=== PATIENT | female | born 1965 | race Caucasian/White ===

== ENCOUNTER 2017-02-09 22:14 | Emergency (ER) | payer MEDICARE, BC ==
[2017-02-09 22:29] VITALS: BP 130/70
[2017-02-09] MEDS ORDERED: Sodium Chloride 0.9% 1,000 ML IV ONE (22:45)
[2017-02-09] MEDS ORDERED: Ondansetron 4 MG/2 ML SDV IVPUSH ONE ×2 (22:46→22:48)
[2017-02-09] MEDS ORDERED: Dicyclomine 20 MG/2 ML SDV IM ONE (22:46)
--- NOTE | 2017-02-09 23:00 | EDM.PDOC ---
ED HPI GENERAL MEDICAL PROBLEM - General Chief Complaint: Abdominal Pain Stated Complaint: VOMITING DIARRHEA ABDOMINAL PAIN Time Seen by Provider: 02/09/17 22:26 Source of Information: Reports: Patient, RN Notes Reviewed History Limitations: Reports: No Limitations - History of Present Illness INITIAL COMMENTS - FREE TEXT/NARRATIVE: The patient states that she has a history of irritable bowel syndrome, and is undergoing a 3 day GI prep for a colonoscopy scheduled this 02/11/2017 , per Dr. Grimes. She states that when she was given a one-day prep in the past , it was inadequate, therefore she was given a 3 day prep this time. She started GoLYTELY yesterday, but has been having nausea, vomiting, and diarrhea for the past 2 days. She has been having upper abdominal cramps. She states that she feels alternatingly hot and cold. She is aware that her symptoms are due to the GI prep, but states that she can't take it anymore. She states that her contacted Dr. Grimes, who switched the GoLYTELY to magnesium citrate, however, she has not taken any of that yet. The patient's PCP is Dr. Monzon. Abdomen Pain Score (Numeric/FACES): 10 - Related Data Allergies Allergy/AdvReac Type Severity Reaction Status Date / Time codeine Allergy Itching Verified 05/21/16 02:29 milnacipran [From Savella] Allergy Other Verified 05/21/16 02:29 pregabalin [From Lyrica] Allergy Other Verified 05/21/16 02:29 Home Meds: Home Meds Morphine 180 mg PO TID 05/19/16 [History] Pravastatin [Pravachol] 40 mg PO DAILY 05/19/16 [History] Past Medical History Cardiovascular History: Reports: High Cholesterol Gastrointestinal History: Reports: Irritable Bowel Syndrome Musculoskeletal History: Reports: Neck Pain, Chronic Neurological History: Reports: Headaches, Chronic - Past Surgical History HEENT Surgical History: Reports: Adenoidectomy, Tonsillectomy GI Surgical History: Reports: Appendectomy, Cholecystectomy, Other (See Below) ( Exploratory laparotomy) Female Surgical History: Reports: Other (See Below) (Bilateral lumpectomies) Musculoskeletal Surgical History: Reports: Shoulder Surgery (Left rotator cuff repair, open) Social & Family History - Family History Family Medical History: Noncontributory - Tobacco Use Smoking Status *Q: Current Every Day Smoker Years of Tobacco use: 30 Packs/Tins Daily: 0.5 - Caffeine Use Caffeine Use: Reports: Coffee, Tea - Alcohol Use Alcohol Use History: No - Recreational Drug Use Recreational Drug Use: No - Living Situation & Occupation Living situation: Reports: , with Spouse Occupation: Unemployed ED ROS GENERAL - Review of Systems Review Of Systems: See Below Constitutional: Reports: No Symptoms HEENT: Reports: No Symptoms Respiratory: Reports: No Symptoms Cardiovascular: Reports: No Symptoms Endocrine: Reports: No Symptoms GI/Abdominal: Reports: No Symptoms : Reports: No Symptoms Musculoskeletal: Reports: Neck Pain (Chronic) Skin: Reports: No Symptoms Neurological: Reports: Headache (Chronic) Psychiatric: Reports: No Symptoms Hematologic/Lymphatic: Reports: No Symptoms Immunologic: Reports: No Symptoms ED EXAM, GI/ABD - Physical Exam Exam: See Below Exam Limited By: No Limitations General Appearance: Alert, WD/WN, No Apparent Distress, Other (Kept her eyes closed through the entire history and physical) Eyes: Bilateral: Normal Appearance, EOMI Ears: Normal External Exam, Hearing Grossly Normal, Normal TMs Nose: Normal Inspection, No Blood Throat/Mouth: Normal Inspection, Normal Lips, Normal Voice, No Airway Compromise Head: Atraumatic, Normocephalic Neck: Normal Inspection, Full Range of Motion Respiratory/Chest: No Respiratory Distress, Lungs Clear, Normal Breath Sounds, No Accessory Muscle Use Cardiovascular: Normal Peripheral Pulses, Regular Rate, Rhythm, No Gallop, No JVD, No Murmur, No Rub GI/Abdominal: Normal Bowel Sounds, Soft, No Organomegaly, No Distention, No Abnormal Bruit, No Mass, Tenderness (Generalized, nonfocal) (Female) Exam: Deferred Rectal (Female) Exam: Deferred Back Exam: Normal Inspection, Full Range of Motion Extremities: Normal Inspection, Normal Range of Motion, No Pedal Edema, Normal Capillary Refill Neurological: Alert, Oriented, Normal Cognition, No Motor/Sensory Deficits Psychiatric: Flat Affect Skin Exam: Warm, Dry, Intact, Normal Color, No Rash Lymphatic: No Adenopathy Course - Vital Signs Last Recorded V/S: Last Vital Signs Temp 36.5 C 02/09/17 22:25 Pulse 52 L 02/09/17 22:25 Resp 16 02/09/17 22:25 BP 130/70 02/09/17 22:25 Pulse Ox 100 02/09/17 22:25 - Orders/Labs/Meds Labs: Laboratory Tests 02/09/17 02/09/17 02/10/17 Range/Units 23:05 23:05 00:00 WBC 9.49 (3.98-10.04) K/mm3 RBC 4.73 (3.98-5.22) M/mm3 Hgb 14.5 (11.2-15.7) gm/L Hct 41.4 (34.1-44.9) % MCV 87.5 (79.4-94.8) fl MCH 30.7 (25.6-32.2) pg MCHC 35.0 (32.2-35.5) g/dl RDW Std Deviation 39.4 (36.4-46.3) fL Plt Count 173 L (182-369) K/mm3 MPV 11.1 (9.4-12.3) fl Neutrophils % (Manual) 94 H (40-60) % Band Neutrophils % 0 (0-10) % Lymphocytes % (Manual) 6 L (20-40) % Atypical Lymphs % 0 % Monocytes % (Manual) 0 L (2-10) % Eosinophils % (Manual) 0 L (0.7-5.8) % Basophils % (Manual) 0 L (0.1-1.2) Platelet Estimate Adequate RBC Morph Comment Normal Sodium 144 (136-145) mEq/L Potassium 3.6 (3.5-5.1) mEq/L Chloride 106 (98-107) mEq/L Carbon Dioxide 23 (21-32) mEq/L Anion Gap 18.6 H (5-15) BUN 11 (7-18) mg/dL Creatinine 0.7 (0.55-1.02) mg/dL Est Cr Clr Drug Dosing 86.01 mL/min Estimated GFR (MDRD) > 60 (>60) mL/min BUN/Creatinine Ratio 15.7 (14-18) Glucose 156 H (74-106) mg/dL Calcium 9.4 (8.5-10.1) mg/dL Total Bilirubin 0.3 (0.2-1.0) mg/dL AST 16 (15-37) U/L ALT 47 (14-59) U/L Alkaline Phosphatase 75 (46-116) U/L Total Protein 7.9 (6.4-8.2) g/dl Albumin 3.9 (3.4-5.0) g/dl Globulin 4.0 gm/dL Albumin/Globulin Ratio 1.0 (1-2) Lipase 96 (73-393) U/L Urine Color Yellow (Yellow) Urine Appearance Clear (Clear) Urine pH 6.0 (5.0-8.0) Ur Specific [place] > or = 1.030 (1.005-1.030) Urine Protein 1+ H (Negative) Urine Glucose (UA) Negative (Negative) Urine Ketones 2+ H (Negative) Urine Occult Blood 1+ H (Negative) Urine Nitrite Negative (Negative) Urine Bilirubin 1+ H (Negative) Urine Urobilinogen 0.2 (0.2-1.0) Ur Leukocyte Esterase Negative (Negative) Urine RBC 0-5 (0-5) /hpf Urine WBC 0-5 (0-5) /hpf Ur Epithelial Cells 0-5 (0-5) /hpf Urine Bacteria Few (FEW) /hpf Urine Mucus Moderate H (FEW) /hpf Meds: Medications Discontinued Medications Generic Name Dose Route Start Last Admin Trade Name Freq PRN Reason Stop Dose Admin Dicyclomine HCl 20 mg 02/09/17 22:46 02/09/17 23:12 Bentyl IM 02/09/17 22:47 20 mg ONETIME ONE Administration Sodium Chloride 1,000 mls @ 999 mls/hr 02/09/17 22:45 02/09/17 23:12 Normal Saline IV 02/09/17 23:45 999 mls/hr ONETIME ONE Administration Ondansetron HCl 4 mg 02/09/17 22:46 02/09/17 23:10 Zofran IVPUSH 02/09/17 22:47 4 mg ONETIME ONE Administration Ondansetron HCl 4 mg 02/09/17 22:48 02/09/17 23:14 Zofran IVPUSH 02/09/17 22:49 4 mg ONETIME ONE Administration - Re-Assessments/Exams Free Text/Narrative Re-Assessment/Exam: 02/10/17 00:52 Test results discussed with the patient. Today's workup finds no electrolyte abnormalities, however, her blood glucose is elevated at 156, likely representing prediabetes. This was discussed with the patient and her . The patient tells me that she has been told she had hyperglycemia in the past, but that nothing was done about it. They tell me that they already have Zofran ODT at home, and do not need another prescription. I treated the patient with a single dose of IM Bentyl in the ED, but because that can cause colonic dysmotility which could affect the colonoscopy, I am not going to prescribe any more. Departure - Departure Time of Disposition: 00:53 Disposition: Home, Self-Care 01 Condition: Fair Clinical Impression: Nausea, vomiting and diarrhea, Abdominal cramping, Hyperglycemia - Discharge Information Referrals: Mesfin Monzon MD [Primary Care Provider] - Asaf Grimes MD [Physician] - Forms: ED Department Discharge Additional Instructions: You were seen in the emergency room for nausea, vomiting, diarrhea, and abdominal cramps associated with your colonoscopy prep. Workup in the ER included blood work and a urinalysis. Your workup was unremarkable, with the exception of your blood sugar being elevated at 156. This is abnormally high and MOST LIKELY represents prediabetes. You are not dehydrated, and have not developed any electrolyte abnormalities as a result of your vomiting and diarrhea. We recommend that you follow-up with your PCP, Dr. Monzon, for further diabetes evaluation. We recommend that you follow-up with Dr. Grimes regarding the difficulties that you're having with your colonoscopy prep. Take your previously prescribed Zofran oral dissolve tablet as needed. Stay adequately hydrated. If any other problems, please do not hesitate to return to the ER.
== END 2017-02-10 01:05 | disposition home or self-care (01) ==
LOC: JD.ED 22:14
DX: R10.10 Upper abdominal pain, unspecified (principal); R73.9 Hyperglycemia, unspecified; R11.2 Nausea with vomiting, unspecified; R19.7 Diarrhea, unspecified; E78.00 Pure hypercholesterolemia, unspecified; F17.210 Nicotine dependence, cigarettes, uncomplicated; Z88.8 Allergy status to other drugs, medicaments and biological substances; Z88.5 Allergy status to narcotic agent; Z90.49 Acquired absence of other specified parts of digestive tract; Z98.890 Other specified postprocedural states
CPT/HCPCS: 36415; 80053; 81001; 83690; 85025; 96361; 96372; 96374; 99284; J0500; J2405; J7040

== ENCOUNTER 2017-02-11 07:53 | Day surgery (SDC) | payer MEDICARE, BC ==
[~2017-02-11 07:53] MED LIST: Lactated Ringers 1,000 ML IV SCH; Lidocaine 1%/Sod Bicarbonate in NS 8.4% 1 ML Syringe PRN; Sodium Chloride 0.9% 10 ML Syringe FLUSH PRN
--- NOTE | 2017-02-11 09:09 | PCM.PREANE ---
Preanesthetic Assessment - Anesthesia/Transfusion/Family Hx Anesthesia History: Prior Anesthesia Reaction Type of Anesthesia Reaction: Excessive Nausea/Vomiting Family History of Anesthesia Reaction: No Transfusion History: No Prior Transfusion(s) - Review of Systems General: No Symptoms Pulmonary: No Symptoms Cardiovascular: No Symptoms Gastrointestinal: Abdominal pain Neurological: Numbness (feet, hands) Other: Reports: Easy Bleeding - Physical Assessment NPO Status Date: 02/10/17 NPO Status Time: 23:00 Pulse: 78 O2 Sat by Pulse Oximetry: 97 Respiratory Rate: 16 Blood Pressure: 123/67 Temperature: 37.0 C Height: 1.68 m Weight: 65.771 kg ASA Class: 2 Mental Status: Alert & Oriented x3 Airway Class: Mallampati = 1 Dentition: Reports: Normal Dentition Thyro-Mental Finger Breadths: 3 Mouth Opening Finger Breadths: 3 ROM/Head Extension: Limited/Partial Lungs: Clear to auscultation, Normal respiratory effort Cardiovascular: Regular Rate, Regular Rhythm - Allergies Allergies/Adverse Reactions: Allergies Allergy/AdvReac Type Severity Reaction Status Date / Time codeine Allergy Itching Verified 02/11/17 08:35 latex Allergy Itching Verified 02/11/17 08:35 milnacipran [From Savella] Allergy Other Verified 02/11/17 08:35 pregabalin [From Lyrica] Allergy Other Verified 02/11/17 08:35 - Anesthesia Plan Pre-Op Medication Ordered: None - Acknowledgements Anesthesia Type Planned: MAC Pt an Appropriate Candidate for the Planned Anesthesia: Yes Alternatives and Risks of Anesthesia Discussed w Pt/Guardian: Yes Pt/Guardian Understands and Agrees with Anesthesia Plan: Yes PreAnesthesia Questionnaire HEENT History: Reports: Allergic Rhinitis Cardiovascular History: Reports: High Cholesterol, Other (See Below) Other Cardiovascular History: bradycardia Respiratory History: Reports: None Gastrointestinal History: Reports: Cholelithiasis, Irritable Bowel Syndrome, Other (See Below) Other Gastrointestinal History: RLQ pain [employer] HAND History: Reports: Other (See Below) Other OB/BYN History: breast lumpectomy Musculoskeletal History: Reports: Back Pain, Chronic, Neck Pain, Chronic Neurological History: Reports: Headaches, Chronic Psychiatric History: Reports: None Endocrine/Metabolic History: Reports: None Hematologic History: Reports: None Immunologic History: Reports: None Dermatologic History: Reports: None - Past Surgical History HEENT Surgical History: Reports: Adenoidectomy, Tonsillectomy GI Surgical History: Reports: Appendectomy, Cholecystectomy, Colonoscopy, Other (See Below) Other GI Surgeries/Procedures: exploratory laparotomy Female Surgical History: Reports: Tubal Ligation Musculoskeletal Surgical History: Reports: Shoulder Surgery Oncologic Surgical History: Reports: Lumpectomy - SUBSTANCE USE Smoking Status *Q: Current Every Day Smoker Tobacco Use Within Last Twelve Months: Cigarettes Second Hand Smoke Exposure: Yes Days Per Week of Alcohol Use: 0 Number of Drinks Per Day: 0 Total Drinks Per Week: 0 Recreational Drug Use History: No - HOME MEDS Home Medications: Home Meds Morphine 180 mg PO TID 05/19/16 [History] Pravastatin [Pravachol] 40 mg PO DAILY 05/19/16 [History] Aspirin 81 mg PO DAILY 02/10/17 [History] Ondansetron [Ondansetron ODT] 4 mg PO Q8H PRN 02/10/17 [History] Albuterol Sulfate [Proair Hfa] 8.5 gm IH ASDIRECTED PRN 02/11/17 [History] Diazepam [Valium] 5 mg PO Q6HR PRN 02/11/17 [History] - CURRENT (IN HOUSE) MEDS Current Meds: Current Medications Lactated Ringer's (Ringers, Lactated) 1,000 mls @ 125 mls/hr IV ASDIRECTED KISHAN Stop: 02/11/17 23:00 Last Admin: 02/11/17 08:15 Dose: 125 mls/hr Lidocaine/Sodium Bicarbonate (Buffered Lidocaine 1% In Ns 8.4%) 0.25 ml .XX ONETIME PRN PRN Reason: Prior to IV Start Stop: 02/11/17 18:00 Last Admin: 02/11/17 08:14 Dose: 0.25 ml Sodium Chloride (Saline Flush) 10 ml FLUSH ASDIRECTED PRN PRN Reason: Keep Vein Open Stop: 02/11/17 18:00
[2017-02-11] MEDS ORDERED: Scopolamine 1.5 MG Transdermal Patch TOP ONE (09:15)
[2017-02-11] MEDS ORDERED: Midazolam 1 MG/ML 2 ML SDV ONE (09:23)
[2017-02-11] MEDS ORDERED: Propofol 200 MG/20 ML SDV ONE ×2 (09:23→10:04)
[2017-02-11] MEDS ORDERED: Lidocaine 1% 4 ML ONE (09:23)
[2017-02-11] MEDS ORDERED: fentaNYL 100 MCG/2 ML SDV ONE (09:23)
[2017-02-11] MEDS ORDERED: Lactated Ringers 1,000 ML ONE (10:12)
--- NOTE | 2017-02-11 10:20 | PCM.OPNOTE ---
- General Post-Op/Procedure Note Date of Surgery/Procedure: 02/11/17 Operative Procedure(s): 1. EGD with antral biopsy. 2. Colonoscopy with descending colonic and rectal polypectomies Findings: 1. antritis with speckled hemorrhage, no ulcers 2. duodenal-gastric bile reflux 3. rectal, and colon polyp; <5mm Pre Op Diagnosis: 1. Melena. 2. Weight loss unintentional Post-Op Diagnosis: 1. antritis with speckled hemorrhage, no ulcers. 2. duodenal -gastric bile reflux. 3. rectal, and colon polyp; <5mm Anesthesia Technique: MAC, Moderate sedation Primary Surgeon: Asaf Grimes Pathology: Antral biopsies Colon rectal polypectomy EBL in mLs: 0 Complications: None Condition: Good Free Text/Narrative:: After adequate IV sedation and analgesia was obtained with monitoring the patient was placed on her left side. Through the bite block a lubricated upper endoscope was inserted into the esophagus then advanced under direct vision to the stomach. Additional air was given here. There were speckled fibrinous type blood clots within the antrum. These were fine. There was no gross hemorrhage. There was a significant amount of bile within the antrum. The scope was advanced through the pylorus into the second part of the duodenum. The second and first portions were endoscopically normal with no mass lesions or inflammatory changes. The antrum was mildly inflamed and I took 2 biopsies for histologic evaluation. The body of the stomach had normal rugal folds. In the retroflexed view there is no hiatal hernia and the fundus and cardiac regions were normal. There are no gastric or duodenal ulcers. The scope was withdrawn to the distal esophagus which was normal. The body esophagus was unremarkable as well. Photographs were taken for the patient and for the record. Air was removed as a finished procedure which she tolerated well. Perianal inspection and digital rectal examination were performed. A lubricated colonoscope was inserted into the rectum and advanced to the cecum without difficulty. The bowel preparation was excellent. The cecum right colon transverse and descending colons were only remarkable for diminutive polyp about 5 mm in size within the proximal descending colon. This polyp was removed with cold forceps. The specimen was retrieved and the polypectomy site was hemostatic. The sigmoid was unremarkable. Within the rectum there was a similar diminutive polyp was also removed with cold forceps. In the retroflexed rectal view there were no hemorrhoids or mass lesions seen. Photographs were taken for the patient and for the record. There were no complications.
[2017-02-11 10:56] VITALS: BP 109/60
--- NOTE | 2017-02-11 11:47 | PCM48HPAN ---
Post Anesthesia Note - EVALUATION WITHIN 48HRS OF ANESTHETIC Vital Signs in Normal Range: Yes Patient Participated in Evaluation: Yes Respiratory Function Stable: Yes Airway Patent: Yes Cardiovascular Function Stable: Yes Hydration Status Stable: Yes Pain Control Satisfactory: Yes Nausea and Vomiting Control Satisfactory: Yes Mental Status Recovered: Yes - COMMENTS/OBSERVATIONS Free Text/Narrative:: NO ANESTHETIC COMPLICATIONS NOTED
== END 2017-02-11 10:48 | disposition home or self-care (01) ==
LOC: JD.SDS 07:53
PROVIDERS: ATTEND Surgery
DX: D12.4 Benign neoplasm of descending colon (principal); K62.1 Rectal polyp; K29.51 Unspecified chronic gastritis with bleeding; K31.9 Disease of stomach and duodenum, unspecified; E78.00 Pure hypercholesterolemia, unspecified; F17.210 Nicotine dependence, cigarettes, uncomplicated; Z98.890 Other specified postprocedural states; Z90.49 Acquired absence of other specified parts of digestive tract; Z98.51 Tubal ligation status; Z79.82 Long term (current) use of aspirin; Z79.899 Other long term (current) drug therapy; Z88.5 Allergy status to narcotic agent; Z91.040 Latex allergy status; Z88.8 Allergy status to other drugs, medicaments and biological substances
CPT/HCPCS: 43239; 45380; A9270; J2250; J3010; J7120; 00810; 88305; 88342; J2704

== ENCOUNTER 2019-05-23 06:34 | Inpatient (IN) | payer MEDICARE, BC ==
[~2019-05-23 06:34] MED LIST changes: +Acetaminophen 325 MG Tab PO SCH; +Lidocaine 1%/Sod Bicarbonate in NS 8.4% 1 ML Syringe IDERM PRN; -Lidocaine 1%/Sod Bicarbonate in NS 8.4% 1 ML Syringe PRN; +oxyCODONE ER 10 MG TAB.ER PO SCH
[2019-05-23] MEDS ORDERED: Naloxone 0.4 MG/ML SDV IVPUSH PRN (06:52)
[2019-05-23] MEDS ORDERED: Morphine 2 MG/ML Syringe IVPUSH PRN (06:52)
[2019-05-23] MEDS ORDERED: Bisacodyl 5 MG Tab PO PRN (06:52)
[2019-05-23] MEDS ORDERED: Ondansetron 4 MG/2 ML SDV IVPUSH PRN ×2 (06:52→09:54)
[2019-05-23] MEDS ORDERED: Magnesium Hydroxide 400 MG/5 ML Susp 30 ML Cup PO PRN (06:52)
[2019-05-23] MEDS ORDERED: Sennosides 8.6 MG Tab PO PRN (06:52)
[2019-05-23] MEDS ORDERED: ceFAZolin 1 GM Vial ONE ×2 (07:07→07:15)
[2019-05-23] MEDS ORDERED: Vancomycin 1 GM SDV ONE (07:07)
[2019-05-23] MEDS ORDERED: Iodine/Sodium Iodide 2% Tincture 30 ML Bottle ONE (07:07)
[2019-05-23] MEDS ORDERED: Bupivacaine 0.25% 10 ML SDV ONE (07:07)
[2019-05-23] MEDS ORDERED: EPINEPHrine 1 MG/1 ML Amp ONE (07:11)
[2019-05-23] MEDS ORDERED: Ropivacaine 0.5% 5 MG/ML 30 ML SDV ONE (07:11)
[2019-05-23] MEDS ORDERED: Rocuronium 50 MG/5 ML Vial ONE (07:15)
[2019-05-23] MEDS ORDERED: Lactated Ringers 1,000 ML ONE (07:15)
[2019-05-23] MEDS ORDERED: Propofol 200 MG/20 ML SDV ONE (07:15)
[2019-05-23] MEDS ORDERED: Ondansetron 4 MG/2 ML SDV ONE (07:15)
[2019-05-23] MEDS ORDERED: Lidocaine 1% 4 ML ONE ×2 (07:15→07:56)
[2019-05-23] MEDS ORDERED: Dexamethasone 4 MG/ML 5 ML MDV ONE (07:16)
[2019-05-23] MEDS ORDERED: Ketorolac 30 MG/ML SDV ONE (07:16)
[2019-05-23] MEDS ORDERED: fentaNYL 250 MCG/5 ML SDV ONE (07:16)
[2019-05-23] MEDS ORDERED: Midazolam 1 MG/ML 2 ML SDV ONE (07:16)
[2019-05-23] MEDS ORDERED: Scopolamine 1.5 MG Transdermal Patch TOP ONE (07:41)
--- NOTE | 2019-05-23 09:49 | PCM.PREANE ---
Preanesthetic Assessment - Anesthesia/Transfusion/Family Hx Anesthesia History: Prior Anesthesia Reaction Type of Anesthesia Reaction: Excessive Nausea/Vomiting Family History of Anesthesia Reaction: No Transfusion History: No Prior Transfusion(s) - Review of Systems General: No Symptoms Pulmonary: No Symptoms, Other (Quit smoking one year ago. Prior was 0.5 ppd for 40 years. ) Cardiovascular: No Symptoms, Other (Negative stress test one year ago. ) Gastrointestinal: No Symptoms Neurological: Headache, Numbness, Pre-Existing Deficit, Tingling Other: Reports: Easy Bleeding, Easy Bruising, Neck Pain (Neck injury 23 years ago. Numbness/Pain/Tingling to bilateral arms. Chronic pain syndrome. ), Anxiety - Physical Assessment NPO Status Date: 05/22/19 NPO Status Time: 18:00 Vital Signs: Last Vital Signs Temp 36.4 C 05/23/19 06:45 Pulse 77 05/23/19 08:33 Resp 15 05/23/19 08:33 BP 132/70 05/23/19 08:33 Pulse Ox 100 05/23/19 08:33 Height: 1.68 m Weight: 76.657 kg ASA Class: 2 Mental Status: Alert & Oriented x3 Airway Class: Mallampati = 1 Dentition: Reports: Dentures (Upper) Thyro-Mental Finger Breadths: 3 Mouth Opening Finger Breadths: 3 ROM/Head Extension: Limited/Partial (Limited neck extension.) Lungs: Clear to Auscultation, Normal Respiratory Effort Cardiovascular: Regular Rate, Regular Rhythm - Lab Values: Laboratory Last Values PT 10.4 SECONDS (9.7-12.0) 05/23/19 07:23 INR 0.95 05/23/19 07:23 APTT 24 SECONDS (22-31) 05/23/19 07:23 MRSA (PCR) Negative 05/11/19 14:03 - Imaging/EKG Impressions: Sinus Rajesh at 55bpm - Allergies Allergies/Adverse Reactions: Allergies Allergy/AdvReac Type Severity Reaction Status Date / Time adhesive Allergy Rash Verified 05/19/19 14:28 codeine Allergy Nausea and Verified 05/19/19 14:28 Vomiting gabapentin Allergy Anaphylactic Verified 05/19/19 14:28 Shock latex Allergy Itching Verified 05/19/19 14:28 milnacipran [From Savella] Allergy Anaphylactic Verified 05/19/19 14:28 Shock pregabalin [From Lyrica] Allergy Anaphylactic Verified 05/19/19 14:28 Shock - Anesthesia Plan Pre-Op Medication Ordered: Anxiolytic, Other (Scopalamine patch) - Acknowledgements Anesthesia Type Planned: General Anesthesia, Regional Block (Interscalene Nerve Block ) Pt an Appropriate Candidate for the Planned Anesthesia: Yes Alternatives and Risks of Anesthesia Discussed w Pt/Guardian: Yes Pt/Guardian Understands and Agrees with Anesthesia Plan: Yes PreAnesthesia Questionnaire HEENT History: Reports: Impaired Vision, Other (See Below) Other HEENT History: Upper denture Cardiovascular History: Reports: High Cholesterol Other Cardiovascular History: bradycardia Respiratory History: Reports: None Gastrointestinal History: Reports: Gastritis, Other (See Below) Other Gastrointestinal History: Duodenitis, inflammatory bowel disease Genitourinary History: Reports: None 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 (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) Other OB/BYN History: Postmenopausal bleeding Musculoskeletal History: Reports: None Neurological History: Reports: Headaches, Chronic, Other (See Below) Other Neuro History: Spinal cord injury to cervical neck approximately 23 years ago Psychiatric History: Reports: Anxiety, Depression Endocrine/Metabolic History: Reports: None Hematologic History: Reports: None Immunologic History: Reports: None Oncologic (Cancer) History: Dermatologic History: Reports: None - Past Surgical History HEENT Surgical History: Reports: Adenoidectomy, Tonsillectomy Other HEENT Surgeries/Procedures: Laryngoscopy Cardiovascular Surgical History: Reports: None Respiratory Surgical History: Reports: None GI Surgical History: Reports: Appendectomy, Cholecystectomy, Colonoscopy Female Surgical History: Reports: D&C, Tubal Ligation Endocrine Surgical History: Reports: None Neurological Surgical History: Reports: None Musculoskeletal Surgical History: Reports: Other (See Below) Other Musculoskeletal Surgeries/Procedures:: Left wrist ganglion cyst removal Oncologic Surgical History: Reports: Biopsy of Breast Dermatological Surgical History: Reports: None - SUBSTANCE USE Smoking Status *Q: Former Smoker Second Hand Smoke Exposure: No Recreational Drug Use History: No - HOME MEDS Home Medications: Home Meds Albuterol Sulfate [Proair Hfa] 2 puff IH Q6H PRN 02/11/17 [History] Diazepam [Valium] 5 mg PO TID PRN 02/11/17 [History] Orphenadrine [Norflex] 100 mg PO BID PRN 05/19/19 [History] Rosuvastatin [Crestor] 5 mg PO DAILY 05/19/19 [History] Morphine Sulfate [Morphine Sulfate ER] 60 mg PO ASDIRECTED PRN 05/23/19 [History ] - CURRENT (IN HOUSE) MEDS Current Meds: Current Medications Acetaminophen (Tylenol) 975 mg PO ONETIME [facility] Stop: 05/23/19 12:31 Last Admin: 05/23/19 07:05 Dose: 975 mg Aspirin (Ecotrin) 325 mg PO DAILY [facility] Bisacodyl (Dulcolax) 5 mg PO DAILY PRN PRN Reason: Constipation Docusate Sodium (Colace) 100 mg PO BID [facility] Famotidine (Pepcid) 20 mg PO Q12H [facility] Lactated Ringer's (Ringers, Lactated) 1,000 mls @ 125 mls/hr IV ASDIRECTED [facility] Last Admin: 05/23/19 07:20 Dose: 125 mls/hr Cefazolin Sodium/Dextrose 2 gm (/ Premix) 50 mls @ 100 mls/hr IV Q8H [facility] Stop: 05/24/19 07:59 Ketorolac Tromethamine (Toradol) 15 mg IVPUSH Q6H PRN PRN Reason: Pain Lidocaine/Sodium Bicarbonate (Buffered Lidocaine 1% In Ns 8.4%) 0.25 ml IDERM ONETIME PRN PRN Reason: Prior to IV Start Last Admin: 05/23/19 07:19 Dose: 0.25 ml Magnesium Hydroxide (Milk Of Magnesia) 30 ml PO BID PRN PRN Reason: Constipation Morphine Sulfate (Morphine) 2 mg IVPUSH Q2H PRN PRN Reason: Breakthrough Pain Naloxone HCl (Narcan) 0.1 mg IVPUSH Q5M PRN PRN Reason: Oversedation Ondansetron HCl (Zofran) 4 mg IVPUSH Q6H PRN PRN Reason: Nausea/Vomiting Oxycodone HCl (Oxycontin) 10 mg PO ONETIME [facility] Stop: 05/23/19 12:31 Last Admin: 05/23/19 07:05 Dose: 10 mg Oxycodone/Acetaminophen (Percocet 325-5 Mg) 1 - 2 tab PO Q4H PRN PRN Reason: Pain Senna (Senna) 8.6 mg PO BID PRN PRN Reason: Constipation Sodium Chloride (Saline Flush) 10 ml FLUSH ASDIRECTED PRN PRN Reason: Keep Vein Open Discontinued Medications Bupivacaine HCl (Sensorcaine-Mpf 0.25%) Confirm Administered Dose 30 ml .ROUTE .ST-MED ONE Stop: 05/23/19 07:08 Cefazolin Sodium (Ancef) Confirm Administered Dose 2 gm .ROUTE .STK-MED ONE Stop: 05/23/19 07:08 Cefazolin Sodium (Ancef) Confirm Administered Dose 2 gm .ROUTE .ST-MED ONE Stop: 05/23/19 07:16 Dexamethasone (Dexamethasone) Confirm Administered Dose 20 mg .ROUTE .STK-MED ONE Stop: 05/23/19 07:17 Epinephrine HCl (Adrenalin) Confirm Administered Dose 1 mg .ROUTE .ST-MED ONE Stop: 05/23/19 07:12 Fentanyl (Sublimaze) Confirm Administered Dose 250 mcg .ROUTE .ST-MED ONE Stop: 05/23/19 07:17 Lidocaine HCl (Xylocaine-Mpf 1%) Confirm Administered Dose 4 mls @ as directed .ROUTE .ST-MED ONE Stop: 05/23/19 07:16 Lactated Ringer's (Ringers, Lactated) Confirm Administered Dose 1,000 mls @ as directed .ROUTE .ST-MED ONE Stop: 05/23/19 07:16 Lidocaine HCl (Xylocaine-Mpf 1%) Confirm Administered Dose 4 mls @ as directed .ROUTE .ST-MED ONE Stop: 05/23/19 07:57 Iodine (Iodine 2% Mild Tincture) Confirm Administered Dose 30 ml .ROUTE .ST- MED ONE Stop: 05/23/19 07:08 Ketorolac Tromethamine (Toradol) Confirm Administered Dose 30 mg .ROUTE .ST- MED ONE Stop: 05/23/19 07:17 Midazolam HCl (Versed 1 Mg/Ml) Confirm Administered Dose 2 mg .ROUTE .ST-MED ONE Stop: 05/23/19 07:17 Ondansetron HCl (Zofran) Confirm Administered Dose 4 mg .ROUTE .STK-MED ONE Stop: 05/23/19 07:16 Propofol (Diprivan 20 Ml) Confirm Administered Dose 400 mg .ROUTE .STK-MED ONE Stop: 05/23/19 07:16 Rocuronium [place] (Zemuron) Confirm Administered Dose 50 mg .ROUTE .STK-MED ONE Stop: 05/23/19 07:16 Ropivacaine (Naropin 0.5%) Confirm Administered Dose 30 ml .ROUTE .STK-MED ONE Stop: 05/23/19 07:12 Scopolamine (Transderm-Scop) 1.5 mg TOP ONETIME ONE Stop: 05/23/19 07:42 Last Admin: 05/23/19 07:46 Dose: 1.5 mg Tranexamic Acid (Cyklokapron) Confirm Administered Dose 1,000 mg .ROUTE .STK- MED ONE Stop: 05/23/19 07:08 Vancomycin HCl (Vancomycin) Confirm Administered Dose 1 gm .ROUTE .STK-MED ONE Stop: 05/23/19 07:08
[2019-05-23] MEDS ORDERED: diphenhydrAMINE 50 MG/ML SDV IVPUSH PRN (09:54)
[2019-05-23] MEDS ORDERED: fentaNYL 100 MCG/2 ML SDV IVPUSH PRN (09:54)
--- NOTE | 2019-05-23 10:36 | CR ---
Right shoulder: Single fluoroscopic spot view was obtained of the right shoulder utilizing C-arm device. Right shoulder prosthesis is seen. Components are aligned. Underlying bony structures are intact. Fluoroscopy time given as 3.9 seconds. Impression: 1. Procedural study showing placement of right shoulder prosthesis. Diagnostic code #2
--- NOTE | 2019-05-23 10:40 | PCM.POSTAN ---
POST ANESTHESIA ASSESSMENT - MENTAL STATUS Mental Status: Alert, Oriented - VITAL SIGNS Vital Signs: Last Vital Signs Temp 36.4 C 05/23/19 06:45 Pulse 77 05/23/19 08:33 Resp 15 05/23/19 08:33 BP 132/70 05/23/19 08:33 Pulse Ox 100 05/23/19 08:33 - RESPIRATORY Respiratory Status: Respiratory Rate WNL, Airway Patent, O2 Saturation Stable, Supplemental Oxygen - CARDIOVASCULAR CV Status: Pulse Rate WNL, Blood Pressure Stable - GASTROINTESTINAL GI Status: No Symptoms - PAIN Pain Score: 0 - POST OP HYDRATION Hydration Status: Adequate & Stable
--- NOTE | 2019-05-23 10:44 | PCM.SN ---
- Free Text/Narrative Note: Interscalene nerve block note Date: 05/23/2019 Start: 828 Time Out: 826 Stop: 833 Procedure: Right interscalene block under US guidance for postoperative pain control Patient chart reviewed, risk/benefits discussed with patient, consent obtained. Patient positioned supine, monitors/alarms on, oxygen placed via nasal cannula at 2 LPM. Right shoulder prepped with chloraprep x2. Sterile drapes placed with aseptic technique. Under US guidance, right subclavian artery visualized along with the brachial plexus. Plexus followed cephalad up to C6 cricoid level, and area localized with 1mls of 1% lidocaine. 22gauge 2 inch stimiplex needle inserted under US and guided to brachial plexus C5-C6 trunks with 0.44mV with stimulation of biceps noted. Stimulation abolished at 0.2mVs. 1ml of Normal Saline injected with loss of stimulation. Incremental injection of 5mls with negative aspiration prior to each injection of 0.5% ropivacaine with 1:200,000 epinephrine. Total volume=30mls. Refer to nurses notes for vital signs and medication administration. Patient tolerated procedure well. No complications noted. Consuelo Strickland, CORPORATE GIVING MANAGER
--- NOTE | 2019-05-23 11:54 | CR ---
Right shoulder: Portable view of the right shoulder was obtained. Comparison: Prior operative study performed earlier on the same day. Right shoulder prosthesis is seen. Components are aligned. Small amount of soft tissue air is noted. No underlying bony abnormality is identified. Impression: 1. Satisfactory appearance of recently placed right shoulder prosthesis. Diagnostic code #2
[2019-05-23] MEDS: Acetaminophen/oxyCODONE 325-5 MG Tab PO PRN (14:29)
[2019-05-23] MEDS: ceFAZolin 2 GM in Premix Bag 1 BAG IV SCH ×2 (14:32→23:15)
[2019-05-23] MEDS ORDERED: Orphenadrine 100 MG Tab.ER PO PRN (14:45)
[2019-05-23] MEDS ORDERED: Diazepam 5 MG Tab PO PRN (14:45)
[2019-05-23] MEDS ORDERED: ALBUTEROL SULFATE INH PRN (14:45)
--- NOTE | 2019-05-23 14:52 | PCM.CONS ---
H&P History of Present Illness - General Date of Service: 05/23/19 Admit Problem/Dx: Admission Diagnosis/Problem Admission Diagnosis/Problem Osteoarthritis of shoulder Right Shoulder Pain Score (Numeric/FACES): 10 - Related Data Allergies/Adverse Reactions: Allergies Allergy/AdvReac Type Severity Reaction Status Date / Time adhesive Allergy Rash Verified 05/23/19 12:24 gabapentin Allergy Anaphylactic Verified 05/23/19 12:24 Shock latex Allergy Itching Verified 05/23/19 12:24 milnacipran [From Savella] Allergy Anaphylactic Verified 05/23/19 12:24 Shock pregabalin [From Lyrica] Allergy Anaphylactic Verified 05/23/19 12:24 Shock codeine AdvReac Nausea and Verified 05/23/19 12:50 Vomiting Home Medications: Home Meds Albuterol Sulfate [Proair Hfa] 2 puff IH Q6H PRN 02/11/17 [History] Diazepam [Valium] 5 mg PO TID PRN 02/11/17 [History] Orphenadrine [Norflex] 100 mg PO BID PRN 05/19/19 [History] Rosuvastatin [Crestor] 5 mg PO DAILY 05/19/19 [History] Morphine Sulfate [Morphine Sulfate ER] 60 mg PO BID 05/23/19 [History] Past Medical History HEENT History: Reports: Impaired Vision, Other (See Below) Other HEENT History: Upper denture Cardiovascular History: Reports: High Cholesterol Other Cardiovascular History: bradycardia Respiratory History: Reports: None Gastrointestinal History: Reports: Gastritis, Other (See Below) Other Gastrointestinal History: Duodenitis, inflammatory bowel disease Genitourinary History: Reports: None 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: 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: Other (See Below) Other OB/BYN History: Postmenopausal bleeding Musculoskeletal History: Reports: None Neurological History: Reports: Headaches, Chronic, Other (See Below) Other Neuro History: Spinal cord injury to cervical neck approximately 23 years ago Psychiatric History: Reports: Anxiety, Depression Endocrine/Metabolic History: Reports: None Hematologic History: Reports: None Immunologic History: Reports: None Oncologic (Cancer) History: Dermatologic History: Reports: None - Infectious Disease History Infectious Disease History: Reports: Measles, Mumps - Past Surgical History HEENT Surgical History: Reports: Adenoidectomy, Tonsillectomy Other HEENT Surgeries/Procedures: Laryngoscopy Cardiovascular Surgical History: Reports: None Respiratory Surgical History: Reports: None GI Surgical History: Reports: Appendectomy, Cholecystectomy, Colonoscopy Female Surgical History: Reports: D&C, Tubal Ligation Endocrine Surgical History: Reports: None Neurological Surgical History: Reports: None Musculoskeletal Surgical History: Reports: Other (See Below) Other Musculoskeletal Surgeries/Procedures:: Left wrist ganglion cyst removal Oncologic Surgical History: Reports: Biopsy of Breast Dermatological Surgical History: Reports: None Social & Family History - Family History Family Medical History: Noncontributory - Tobacco Use Smoking Status *Q: Former Smoker Used Tobacco, but Quit: Yes Month/Year Tobacco Last Used: 2017 Second Hand Smoke Exposure: No - Caffeine Use Caffeine Use: Reports: Coffee, Tea - Recreational Drug Use Recreational Drug Use: No Drug Use in Last 12 Months: No - Living Situation & Occupation Living situation: Reports: , with Spouse Occupation: Unemployed Exam - Vital Signs Vital Signs: Last Vital Signs Temp 97.3 F 05/23/19 11:30 Pulse 64 05/23/19 12:02 Resp 14 05/23/19 11:30 BP 131/72 05/23/19 12:02 Pulse Ox 99 05/23/19 12:02 Weight: 169 lb - Patient Data Lab Results Last 24 hrs: Laboratory Results - last 24 hr 05/23/19 Range/Units 07:23 PT 10.4 (9.7-12.0) SECONDS INR 0.95 APTT 24 (22-31) SECONDS Consult PN Assessment/Plan Procedures: Procedures ASSAY OF LIPASE (02/09/17) C-REACTIVE PROTEIN (05/21/16) CARDIOVASCULAR STRESS TEST (02/17/17) COLONOSCOPY AND BIOPSY (02/11/17) COMPLETE CBC W/AUTO DIFF WBC (02/09/17) COMPREHEN METABOLIC PANEL (02/09/17) EGD BIOPSY SINGLE/MULTIPLE (02/11/17) EMERGENCY DEPT VISIT (02/09/17) HT MUSCLE IMAGE SPECT MULT (02/17/17) HYDRATE IV INFUSION ADD-ON (02/09/17) MRI JOINT UPR EXTREM W/O DYE (02/12/18) MRI LUMBAR SPINE W/O DYE (03/11/18) ROUTINE VENIPUNCTURE (02/09/17) THER/PROPH/DIAG INJ IV PUSH (02/09/17) THER/PROPH/DIAG INJ SC/IM (02/09/17) TX/PRO/DX INJ NEW DRUG ADDON (05/21/16) TX/PRO/DX INJ SAME DRUG BRANCH BANKER (05/19/16) URINALYSIS AUTO W/SCOPE (02/09/17) URINE TEST (05/21/16)
[2019-05-23] MEDS: Ketorolac 15 MG/ML SDV IVPUSH PRN ×2 (16:36→21:22)
[2019-05-23] MEDS: Morphine 15 MG Tab.ER PO SCH (21:20)
[2019-05-23] MEDS: Famotidine 20 MG Tab PO SCH (21:21)
[2019-05-23] MEDS: Docusate Sodium 100 MG Cap PO SCH (21:21)
[2019-05-24] MEDS: Acetaminophen/oxyCODONE 325-5 MG Tab PO PRN ×3 (02:23→11:09)
[2019-05-24] MEDS: Ketorolac 15 MG/ML SDV IVPUSH PRN (04:11)
--- NOTE | 2019-05-24 08:05 | PCM48HPAN ---
Post Anesthesia Note - EVALUATION WITHIN 48HRS OF ANESTHETIC Vital Signs in Normal Range: Yes Patient Participated in Evaluation: Yes Respiratory Function Stable: Yes Airway Patent: Yes Cardiovascular Function Stable: Yes Hydration Status Stable: Yes Pain Control Satisfactory: Yes Nausea and Vomiting Control Satisfactory: Yes Mental Status Recovered: Yes Vital Signs: Last Vital Signs Temp 36.9 C 05/24/19 04:43 Pulse 66 05/24/19 04:43 Resp 18 05/24/19 04:43 BP 130/91 H 05/24/19 04:43 Pulse Ox 98 05/24/19 04:43
[2019-05-24] MEDS: ceFAZolin 2 GM in Premix Bag 1 BAG IV SCH (08:56)
[2019-05-24] MEDS ORDERED: Aspirin 325 MG Tab.EC PO SCH (09:00)
[2019-05-24] MEDS ORDERED: FLU Vacc QS2019-20(6MOS+)/PF 60 MCG/0.5 ML SYRINGE IM ONE (09:00)
[2019-05-24] MEDS: Morphine 15 MG Tab.ER PO SCH (09:00)
[2019-05-24] MEDS: Famotidine 20 MG Tab PO SCH (09:01)
[2019-05-24] MEDS: Docusate Sodium 100 MG Cap PO SCH (09:01)
--- NOTE | 2019-05-24 09:23 | PCM.SURGPN ---
- General Info Date of Service: 05/24/19 POD#: 1 Functional Status: Reports: Pain Controlled, Tolerating Diet, Ambulating, Urinating, Incentive Spirometry, Other (The pt's pain was better controlled after re-positioning. She complains mainly of back pain which has been chronic for her.) - Patient Data Vitals - Most Recent: Last Vital Signs Temp 98.4 F 05/24/19 04:43 Pulse 66 05/24/19 04:43 Resp 18 05/24/19 04:43 BP 130/91 H 05/24/19 04:43 Pulse Ox 98 05/24/19 04:43 Weight - Most Recent: 176 lb 1.6 oz I&O - Last 24 Hours: Intake & Output 05/23/19 05/24/19 05/24/19 22:59 06:59 14:59 Intake Total 1180 980 Output Total 600 400 Balance 580 580 Lab Results Last 24 Hrs: Laboratory Results - last 24 hr 05/24/19 05/24/19 Range/Units 06:03 06:03 WBC 9.85 (3.98-10.04) K/mm3 RBC 3.80 L (3.98-5.22) M/mm3 Hgb 11.8 D (11.2-15.7) gm/dl Hct 34.8 (34.1-44.9) % MCV 91.6 D (79.4-94.8) fl MCH 31.1 (25.6-32.2) pg MCHC 33.9 (32.2-35.5) g/dl RDW Std Deviation 39.6 (36.4-46.3) fL Plt Count 186 (182-369) K/mm3 MPV 10.2 (9.4-12.3) fl Sodium 140 (136-145) mEq/L Potassium 3.7 (3.5-5.1) mEq/L Chloride 103 (98-107) mEq/L Carbon Dioxide 27 (21-32) mEq/L Anion Gap 13.7 (5-15) BUN 10 (7-18) mg/dL Creatinine 0.8 (0.55-1.02) mg/dL Est Cr Clr Drug Dosing 73.51 mL/min Estimated GFR (MDRD) > 60 (>60) mL/min BUN/Creatinine Ratio 12.5 L (14-18) Glucose 92 (74-106) mg/dL Calcium 8.9 (8.5-10.1) mg/dL Total Bilirubin 0.3 (0.2-1.0) mg/dL AST 18 (15-37) U/L ALT 20 (14-59) U/L Alkaline Phosphatase 36 L (46-116) U/L Total Protein 6.5 (6.4-8.2) g/dl Albumin 3.3 L (3.4-5.0) g/dl Globulin 3.2 gm/dL Albumin/Globulin Ratio 1.0 (1-2) Med Orders - Current: Current Medications Aspirin (Ecotrin) 325 mg PO DAILY [facility] Last Admin: 05/24/19 09:01 Dose: 325 mg Bisacodyl (Dulcolax) 5 mg PO DAILY PRN PRN Reason: Constipation Diazepam (Valium.) 5 mg PO TID PRN PRN Reason: Muscle Spasm Last Admin: 05/24/19 04:12 Dose: 5 mg Docusate Sodium (Colace) 100 mg PO BID [facility] Last Admin: 05/24/19 09:01 Dose: 100 mg Famotidine (Pepcid) 20 mg PO Q12H [facility] Last Admin: 05/24/19 09:01 Dose: 20 mg Lactated Ringer's (Ringers, Lactated) 1,000 mls @ 125 mls/hr IV ASDIRECTED [facility] Last Admin: 05/23/19 07:20 Dose: 125 mls/hr Influenza Virus Vaccine (Pharmacy To Dose - Influenza Vaccine) 1 each IM ONETIME ONE Stop: 05/24/19 10:01 Magnesium Hydroxide (Milk Of Magnesia) 30 ml PO BID PRN PRN Reason: Constipation Morphine Sulfate (Morphine) 2 mg IVPUSH Q2H PRN PRN Reason: Breakthrough Pain Morphine Sulfate (Ms Contin) 60 mg PO BID [facility] Last Admin: 05/24/19 09:00 Dose: 60 mg Naloxone HCl (Narcan) 0.1 mg IVPUSH Q5M PRN PRN Reason: Oversedation Ondansetron HCl (Zofran) 4 mg IVPUSH Q6H PRN PRN Reason: Nausea/Vomiting Orphenadrine Citrate (Norflex) 100 mg PO BID PRN PRN Reason: Muscle Spasm Last Admin: 05/23/19 23:14 Dose: 100 mg Oxycodone/Acetaminophen (Percocet 325-5 Mg) 1 - 2 tab PO Q4H PRN PRN Reason: Pain Last Admin: 05/24/19 07:11 Dose: 2 tab Albuterol Sulfate [ (Proair Hfa] Ptom) 0 each INH Q6H PRN PRN Reason: Shortness of Breath Senna (Senna) 8.6 mg PO BID PRN PRN Reason: Constipation Sodium Chloride (Saline Flush) 10 ml FLUSH ASDIRECTED PRN PRN Reason: Keep Vein Open Discontinued Medications Acetaminophen (Tylenol) 975 mg PO ONETIME [facility] Stop: 05/23/19 12:31 Last Admin: 05/23/19 07:05 Dose: 975 mg Bupivacaine HCl (Sensorcaine-Mpf 0.25%) Confirm Administered Dose 30 ml .ROUTE .STK-MED ONE Stop: 05/23/19 07:08 Cefazolin Sodium (Ancef) Confirm Administered Dose 2 gm .ROUTE .STK-MED ONE Stop: 05/23/19 07:08 Last Admin: 05/23/19 09:53 Dose: 2 gm Cefazolin Sodium (Ancef) Confirm Administered Dose 2 gm .ROUTE .STK-MED ONE Stop: 05/23/19 07:16 Dexamethasone (Dexamethasone) Confirm Administered Dose 20 mg .ROUTE .STK-MED ONE Stop: 05/23/19 07:17 Diphenhydramine HCl (Benadryl) 25 mg IVPUSH Q6H PRN PRN Reason: Pruritis Stop: 05/23/19 12:00 Epinephrine HCl (Adrenalin) Confirm Administered Dose 1 mg .ROUTE .STK-MED ONE Stop: 05/23/19 07:12 Fentanyl (Sublimaze) Confirm Administered Dose 250 mcg .ROUTE .STK-MED ONE Stop: 05/23/19 07:17 Fentanyl (Sublimaze) 50 mcg IVPUSH Q5M PRN PRN Reason: Pain Stop: 05/23/19 12:00 Cefazolin Sodium/Dextrose 2 gm (/ Premix) 50 mls @ 100 mls/hr IV Q8H [facility] Stop: 05/24/19 07:59 Last Admin: 05/24/19 08:56 Dose: 100 mls/hr Lidocaine HCl (Xylocaine-Mpf 1%) Confirm Administered Dose 4 mls @ as directed .ROUTE .STK-MED ONE Stop: 05/23/19 07:16 Lactated Ringer's (Ringers, Lactated) Confirm Administered Dose 1,000 mls @ as directed .ROUTE .STK-MED ONE Stop: 05/23/19 07:16 Lidocaine HCl (Xylocaine-Mpf 1%) Confirm Administered Dose 4 mls @ as directed .ROUTE .STK-MED ONE Stop: 05/23/19 07:57 Influenza Virus Vaccine (Fluzone Quad Syringe) 60 mcg IM .ONCE ONE Stop: 05/24/19 09:01 Iodine (Iodine 2% Mild Tincture) Confirm Administered Dose 30 ml .ROUTE .STK- MED ONE Stop: 05/23/19 07:08 Last Admin: 05/23/19 09:50 Dose: 18 ml Ketorolac Tromethamine (Toradol) 15 mg IVPUSH Q6H PRN PRN Reason: Pain Last Admin: 05/24/19 04:11 Dose: 15 mg Ketorolac Tromethamine (Toradol) Confirm Administered Dose 30 mg .ROUTE .STK- MED ONE Stop: 05/23/19 07:17 Lidocaine/Sodium Bicarbonate (Buffered Lidocaine 1% In Ns 8.4%) 0.25 ml IDERM ONETIME PRN PRN Reason: Prior to IV Start Last Admin: 05/23/19 07:19 Dose: 0.25 ml Midazolam HCl (Versed 1 Mg/Ml) Confirm Administered Dose 2 mg .ROUTE .STK-MED ONE Stop: 05/23/19 07:17 Ondansetron HCl (Zofran) Confirm Administered Dose 4 mg .ROUTE .STK-MED ONE Stop: 05/23/19 07:16 Ondansetron HCl (Zofran) 4 mg IVPUSH ONETIME PRN PRN Reason: Nausea/Vomiting Stop: 05/23/19 12:00 Oxycodone HCl (Oxycontin) 10 mg PO ONETIME [facility] Stop: 05/23/19 12:31 Last Admin: 05/23/19 07:05 Dose: 10 mg Propofol (Diprivan 20 Ml) Confirm Administered Dose 400 mg .ROUTE .STK-MED ONE Stop: 05/23/19 07:16 Rocuronium [place] (Zemuron) Confirm Administered Dose 50 mg .ROUTE .STK-MED ONE Stop: 05/23/19 07:16 Ropivacaine (Naropin 0.5%) Confirm Administered Dose 30 ml .ROUTE .STK-MED ONE Stop: 05/23/19 07:12 Scopolamine (Transderm-Scop) 1.5 mg TOP ONETIME ONE Stop: 05/23/19 07:42 Last Admin: 05/23/19 07:46 Dose: 1.5 mg Tranexamic Acid (Cyklokapron) Confirm Administered Dose 1,000 mg .ROUTE .STK- MED ONE Stop: 05/23/19 07:08 Last Admin: 05/23/19 09:59 Dose: 1,000 mg Vancomycin HCl (Vancomycin) Confirm Administered Dose 1 gm .ROUTE .STK-MED ONE Stop: 05/23/19 07:08 Last Admin: 05/23/19 09:59 Dose: 1 gm - Exam Wound/Incisions: Dressing Dry and Intact General: Alert, Cooperative, No Acute Distress Lungs: Normal Respiratory Effort Extremities: Other (Pt able to sense light touch at RUE. Active wrist, hand motion noted.) - Problem List Review Problem List Initiated/Reviewed/Updated: Yes - My Orders Last 24 Hours: Active Orders 24 hr Category Date Time Status Influenza Vaccine Charge [RC] .DISCHARGE Care 05/23/19 12:16 Active Notify Provider [RC] ASDIRECTED Care 05/23/19 09:54 Active Pulse Oximetry [RC] ASDIRECTED Care 05/23/19 09:54 Active Ready for Discharge [RC] PER UNIT ROUTINE Care 05/24/19 07:29 Active Regular Diet [DIET] Diet 05/23/19 Lunch Active Aspirin [Ecotrin] Med 05/24/19 09:00 Active 325 mg PO DAILY Docusate Sodium [Colace] Med 05/23/19 21:00 Active 100 mg PO BID Famotidine [Pepcid] Med 05/23/19 21:00 Active 20 mg PO Q12H Morphine [MS Contin] Med 05/23/19 21:00 Active 60 mg PO BID Orphenadrine [Norflex] Med 05/23/19 14:45 Active 100 mg PO BID PRN Patient's Own Medication [Ptom] Med 05/23/19 14:45 Active 0 each INH Q6H PRN Pharmacy to Dose - InFluenza V [Pharmacy to Dose - Med 05/24/19 10:00 Once InFluenza Vaccine] 1 each IM ONETIME ONE diazePAM [Valium] Med 05/23/19 14:45 Active 5 mg PO TID PRN Medication Orders Aspirin (Ecotrin) 325 mg PO DAILY [facility] Last Admin: 05/24/19 09:01 Dose: 325 mg Bisacodyl (Dulcolax) 5 mg PO DAILY PRN PRN Reason: Constipation Diazepam (Valium.) 5 mg PO TID PRN PRN Reason: Muscle Spasm Last Admin: 05/24/19 04:12 Dose: 5 mg Docusate Sodium (Colace) 100 mg PO BID [facility] Last Admin: 05/24/19 09:01 Dose: 100 mg Admin: 05/23/19 21:21 Dose: 100 mg Famotidine (Pepcid) 20 mg PO Q12H [facility] Last Admin: 05/24/19 09:01 Dose: 20 mg Admin: 05/23/19 21:21 Dose: 20 mg Lactated Ringer's (Ringers, Lactated) 1,000 mls @ 125 mls/hr IV ASDIRECTED [facility] Last Admin: 05/23/19 07:20 Dose: 125 mls/hr Influenza Virus Vaccine (Pharmacy To Dose - Influenza Vaccine) 1 each IM ONETIME ONE Stop: 05/24/19 10:01 Magnesium Hydroxide (Milk Of Magnesia) 30 ml PO BID PRN PRN Reason: Constipation Morphine Sulfate (Morphine) 2 mg IVPUSH Q2H PRN PRN Reason: Breakthrough Pain Morphine Sulfate (Ms Contin) 60 mg PO BID [facility] Last Admin: 05/24/19 09:00 Dose: 60 mg Admin: 05/23/19 21:20 Dose: 60 mg Naloxone HCl (Narcan) 0.1 mg IVPUSH Q5M PRN PRN Reason: Oversedation Ondansetron HCl (Zofran) 4 mg IVPUSH Q6H PRN PRN Reason: Nausea/Vomiting Orphenadrine Citrate (Norflex) 100 mg PO BID PRN PRN Reason: Muscle Spasm Last Admin: 05/23/19 23:14 Dose: 100 mg Oxycodone/Acetaminophen (Percocet 325-5 Mg) 1 - 2 tab PO Q4H PRN PRN Reason: Pain Last Admin: 05/24/19 07:11 Dose: 2 tab Admin: 05/24/19 02:23 Dose: 2 tab Admin: 05/23/19 14:29 Dose: 2 tab Albuterol Sulfate [ (Proair Hfa] Ptom) 0 each INH Q6H PRN PRN Reason: Shortness of Breath Senna (Senna) 8.6 mg PO BID PRN PRN Reason: Constipation Sodium Chloride (Saline Flush) 10 ml FLUSH ASDIRECTED PRN PRN Reason: Keep Vein Open - Assessment Assessment (Free Text/Narrative):: POD#1 - s/p right reverse TSA - Plan Plan (Free Text/Narrative):: 1. Hgb 11.0. 2. Discharge to home today. 3. ASA PO daily. Frequent mobility, TEDs. 4. Outpatient therapy. The pt's case was discussed with Dr. Reis.
[2019-05-24 15:46] VITALS: BP 131/88; PULSE 64
--- NOTE | 2019-05-26 11:09 | PCM.DCSUM1 ---
Discharge Summary - Hospital Course Brief History: Rhonda is a 54 yo female who underwent right reverse TSA with Dr. Reis on 05-23-2019. The procedure was completed under general anesthesia with regional block. The pt tolerated the procedure well and was admitted to the Medical-Surgical unit. The pt received Ancef jeff-operatively. She participated in P.T. and O.T. and progressed well. The pt's surgical wound was dressed with a Mepilex dressing and remained clean and dry. On POD#1, the pt was started on 325mg ASA daily for VTE prophylaxis. The pt used TEDs and SCDs also. On POD#1, the pt's hemoglobin was 11.8. On POD#1, the pt was deemed appropriate for discharge to home with her family. - Discharge Data Discharge Date: 05/24/19 Discharge Disposition: Home, Self-Care 01 Condition: Good - Referral to Home Health Primary Care Physician: Mesfin Monzon MD - Patient Summary/Data Consults: Consultations 05/23/19 06:50 OT Evaluation and Treatment [CONS] Routine PT Evaluation and Treatment [CONS] Routine - Patient Instructions Diet: Usual Diet as Tolerated Activity: Apply Ice, As Tolerated, Elevate Extremity Activity, Other: No forceful use of the surgical limb. Driving: Do Not Drive Showering/Bathing: May Shower Wound/Incision Care: Keep Operative Site/Wound Site Clean and Dry, Do NOT Change Dressing Notify Provider of: Fever, Increased Pain, Swelling and Redness, Drainage, Nausea and/or Vomiting Other/Special Instructions: Please get up and moving around EVERY HOUR while awake. This helps to prevent blood clots. Please use your walker and have help with mobility as needed. Take a short walk in your home every hour while awake. Please take 325mg Aspirin daily. The aspirin is being used for blood clot prevention and not for pain management so please do not miss a dose of the medication. You could use a medication like Pepcid and a medication like Prilosec or Nexium to protect your stomach while you are using the aspirin. At home, please complete the exercises that you learned during the Hospital stay. Schedule for physical or occupational therapy. Use the pain medication as needed. The medication may cause drowsiness and constipation. Contact your primary care provider for instructions if you are constipated. You may use a stool softener like docusate sodium or Colace 100mg twice daily and/or a laxative like Miralax daily for constipation. Increase your water and fiber intake while you are using the pain medication. Discontinue use of the pain medication as soon as able. Please do not use other medications that may cause drowsiness (other pain medications, anxiety pills, cold medications, sleeping pills, etc) while using the prescription pain medication. Do not use alcohol while using the pain medication. You may use acetaminophen or Tylenol for pain management, however, please ensure you are not using over 4000 mg or 4 grams of acetaminophen per day from all sources. Your pain medication has 325mg of acetaminophen per tablet. Wear the DANIEL hose during the day and you may remove these at night. Elevate the limb to decrease swelling. Place ice to the area often. Place a towel between your skin and the blue pad. Use the incentive spirometer often. Take deep breaths throughout the day. Please keep the dressing in place until follow-up. Notify the Clinic if the dressing becomes saturated. Increase your protein intake while you are healing. If you have diabetes, please closely monitor your blood sugars and notify your primary care provider with abnormal values. Elevated blood sugars increases the risk of infection. Call the Clinic with questions or concerns - [phone]. - Discharge Plan *PRESCRIPTION DRUG MONITORING PROGRAM REVIEWED*: No *COPY OF PRESCRIPTION DRUG MONITORING REPORT IN PATIENT SARAH: No Prescriptions/Med Rec: Acetaminophen/oxyCODONE [Percocet 325-5 MG] 1 - 2 tab PO Q4H PRN #40 tablet PRN Reason: Pain Aspirin [Ecotrin EC] 325 mg PO DAILY #40 tab.ec Home Medications: Home Meds Albuterol Sulfate [Proair Hfa] 2 puff IH Q6H PRN 02/11/17 [History] Diazepam [Valium] 5 mg PO TID PRN 02/11/17 [History] Orphenadrine [Norflex] 100 mg PO BID PRN 05/19/19 [History] Rosuvastatin [Crestor] 5 mg PO DAILY 05/19/19 [History] Morphine Sulfate [Morphine Sulfate ER] 60 mg PO BID 05/23/19 [History] Acetaminophen/oxyCODONE [Percocet 325-5 MG] 1 - 2 tab PO Q4H PRN #40 tablet 09/11 [Rx] Aspirin [Ecotrin EC] 325 mg PO DAILY #40 tab.ec 05/24/19 [Rx] Bisacodyl [Dulcolax] 5 mg PO DAILY PRN tablet 05/24/19 [Rx] Docusate Sodium [Colace] 100 mg PO BID cap 05/24/19 [Rx] Famotidine [Pepcid] 20 mg PO Q12H tablet 05/24/19 [Rx] Magnesium Hydroxide [Milk of Magnesia] 30 ml PO BID PRN cup 05/24/19 [Rx] Sennosides [Senna] 8.6 mg PO BID PRN tablet 05/24/19 [Rx] Referrals: Britany Garcia PA-C [Physician Retail Manager In Training] - 05/31/19 1:15 pm (Please follow up with JOSE G Styles as follows: - Friday, May 31, 2019 at 1:15 pm - Friday, June 14, 2019 at 1:15 pm - Friday, July 12, 2019 at 11:15 am) - Discharge Summary/Plan Comment DC Time >30 min.: No - Patient Data Vitals - Most Recent: Last Vital Signs Temp 98.8 F 05/24/19 12:15 Pulse 64 05/24/19 12:15 Resp 18 05/24/19 12:15 BP 131/88 05/24/19 12:15 Pulse Ox 100 05/24/19 12:15 Weight - Most Recent: 176 lb 1.6 oz Med Orders - Current: Current Medications Discontinued Medications Acetaminophen (Tylenol) 975 mg PO ONETIME [facility] Stop: 05/23/19 12:31 Last Admin: 05/23/19 07:05 Dose: 975 mg Aspirin (Ecotrin) 325 mg PO DAILY [facility] Last Admin: 05/24/19 09:01 Dose: 325 mg Bisacodyl (Dulcolax) 5 mg PO DAILY PRN PRN Reason: Constipation Bupivacaine HCl (Sensorcaine-Mpf 0.25%) Confirm Administered Dose 30 ml .ROUTE .STK-MED ONE Stop: 05/23/19 07:08 Cefazolin Sodium (Ancef) Confirm Administered Dose 2 gm .ROUTE .STK-MED ONE Stop: 05/23/19 07:08 Last Admin: 05/23/19 09:53 Dose: 2 gm Cefazolin Sodium (Ancef) Confirm Administered Dose 2 gm .ROUTE .STK-MED ONE Stop: 05/23/19 07:16 Dexamethasone (Dexamethasone) Confirm Administered Dose 20 mg .ROUTE .STK-MED ONE Stop: 05/23/19 07:17 Diazepam (Valium.) 5 mg PO TID PRN PRN Reason: Muscle Spasm Last Admin: 05/24/19 04:12 Dose: 5 mg Diphenhydramine HCl (Benadryl) 25 mg IVPUSH Q6H PRN PRN Reason: Pruritis Stop: 05/23/19 12:00 Docusate Sodium (Colace) 100 mg PO BID [facility] Last Admin: 05/24/19 09:01 Dose: 100 mg Epinephrine HCl (Adrenalin) Confirm Administered Dose 1 [facility] Stop: 05/23/19 07:12 Famotidine (Pepcid) 20 mg PO Q12H [facility] Last Admin: 05/24/19 09:01 Dose: 20 mg Fentanyl (Sublimaze) Confirm Administered Dose 250 mcg .[facility] Stop: 05/23/19 07:17 Fentanyl (Sublimaze) 50 mcg IVPUSH Q5M PRN PRN Reason: Pain Stop: 05/23/19 12:00 Lactated Ringer's (Ringers, Lactated) 1,000 mls @ 125 mls/hr IV ASDIRECTED [facility] Last Admin: 05/23/19 07:20 Dose: 125 mls/hr Cefazolin Sodium/Dextrose 2 gm (/ Premix) 50 mls @ 100 mls/hr IV Q8H [facility] Stop: 05/24/19 07:59 Last Admin: 05/24/19 08:56 Dose: 100 mls/hr Lidocaine HCl (Xylocaine-Mpf 1%) Confirm Administered Dose 4 mls @ as directed .ROUTE .STK-MED ONE Stop: 05/23/19 07:16 Lactated Ringer's (Ringers, Lactated) Confirm Administered Dose 1,000 mls @ as directed .ROUTE .ST-MED ONE Stop: 05/23/19 07:16 Lidocaine HCl (Xylocaine-Mpf 1%) Confirm Administered Dose 4 mls @ as directed .ROUTE .STK-MED ONE Stop: 05/23/19 07:57 Influenza Virus Vaccine (Pharmacy To Dose - Influenza Vaccine) 1 each IM ONETIME ONE Stop: 05/24/19 10:01 Influenza Virus Vaccine (Fluzone Quad [id number] Syringe) 60 mcg IM .ONCE ONE Stop: 05/24/19 09:01 Last Admin: 05/24/19 12:47 Dose: 60 mcg Iodine (Iodine 2% Mild Tincture) Confirm Administered Dose 30 ml .ROUTE .STK- MED ONE Stop: 05/23/19 07:08 Last Admin: 05/23/19 09:50 Dose: 18 ml Ketorolac Tromethamine (Toradol) 15 mg IVPUSH Q6H PRN PRN Reason: Pain Last Admin: 05/24/19 04:11 Dose: 15 mg Ketorolac Tromethamine (Toradol) Confirm Administered Dose 30 mg .ROUTE .STK- MED ONE Stop: 05/23/19 07:17 Lidocaine/Sodium Bicarbonate (Buffered Lidocaine 1% In Ns 8.4%) 0.25 ml IDERM ONETIME PRN PRN Reason: Prior to IV Start Last Admin: 05/23/19 07:19 Dose: 0.25 ml Magnesium Hydroxide (Milk Of Magnesia) 30 ml PO BID PRN PRN Reason: Constipation Midazolam HCl (Versed 1 Mg/Ml) Confirm Administered Dose 2 mg .ROUTE .STK-MED ONE Stop: 05/23/19 07:17 Morphine Sulfate (Morphine) 2 mg IVPUSH Q2H PRN PRN Reason: Breakthrough Pain Morphine Sulfate (Ms Contin) 60 mg PO BID [facility] Last Admin: 05/24/19 09:00 Dose: 60 mg Naloxone HCl (Narcan) 0.1 mg IVPUSH Q5M PRN PRN Reason: Oversedation Ondansetron HCl (Zofran) 4 mg IVPUSH Q6H PRN PRN Reason: Nausea/Vomiting Ondansetron HCl (Zofran) Confirm Administered Dose 4 mg .ROUTE .STK-MED ONE Stop: 05/23/19 07:16 Ondansetron HCl (Zofran) 4 mg IVPUSH ONETIME PRN PRN Reason: Nausea/Vomiting Stop: 05/23/19 12:00 Orphenadrine Citrate (Norflex) 100 mg PO BID PRN PRN Reason: Muscle Spasm Last Admin: 05/23/19 23:14 Dose: 100 mg Oxycodone HCl (Oxycontin) 10 mg PO ONETIME [facility] Stop: 05/23/19 12:31 Last Admin: 05/23/19 07:05 Dose: 10 mg Oxycodone/Acetaminophen (Percocet 325-5 Mg) 1 - 2 tab PO Q4H PRN PRN Reason: Pain Last Admin: 05/24/19 11:09 Dose: 2 tab Albuterol Sulfate [ (Proair Hfa] Ptom) 0 each INH Q6H PRN PRN Reason: Shortness of Breath Propofol (Diprivan 20 Ml) Confirm Administered Dose 400 mg .ROUTE .STK-MED ONE Stop: 05/23/19 07:16 Rocuronium [place] (Zemuron) Confirm Administered Dose 50 mg .ROUTE .STK-MED ONE Stop: 05/23/19 07:16 Ropivacaine (Naropin 0.5%) Confirm Administered Dose 30 ml .ROUTE .STK-MED ONE Stop: 05/23/19 07:12 Scopolamine (Transderm-Scop) 1.5 mg TOP ONETIME ONE Stop: 05/23/19 07:42 Last Admin: 05/23/19 07:46 Dose: 1.5 mg Senna (Senna) 8.6 mg PO BID PRN PRN Reason: Constipation Sodium Chloride (Saline Flush) 10 ml FLUSH ASDIRECTED PRN PRN Reason: Keep Vein Open Tranexamic Acid (Cyklokapron) Confirm Administered Dose 1,000 mg .ROUTE .STK- MED ONE Stop: 05/23/19 07:08 Last Admin: 05/23/19 09:59 Dose: 1,000 mg Vancomycin HCl (Vancomycin) Confirm Administered Dose 1 gm .ROUTE .STK-MED ONE Stop: 05/23/19 07:08 Last Admin: 05/23/19 09:59 Dose: 1 gm
--- NOTE | 2019-05-26 11:18 | PCM.OPNOTE ---
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
--- NOTE | 2019-05-26 12:44 | OR ---
DATE OF OPERATION: 05/23/2019 SURGEON: Erick Reis MD OPERATION PERFORMED: Right reverse total shoulder arthroplasty. PREOPERATIVE DIAGNOSIS: Right shoulder glenohumeral arthrosis with rotator cuff tear. POSTOPERATIVE DIAGNOSIS: Right shoulder glenohumeral arthrosis with rotator cuff tear. ANESTHESIA: General endotracheal intubation with regional interscalene block. ANESTHESIA PROVIDER: Mackenzie Monterroso. ASSISTANTS: Britany Garcia PA-C. And Luh Kang LPN. ESTIMATED BLOOD LOSS: 150 mL. COMPLICATIONS: None. CONDITION: Stable. IMPLANTS: 1. Arthrex size 28 mm Concentric baseplate. 2. Arthrex size 36 + 4 mm glenosphere. 3. Arthrex size 3 mm polyethylene liner. 4. Arthrex size 9 mm 135 degree stem. DESCRIPTION OF PROCEDURE: The patient was identified in the preoperative holding area. Proper site was marked and identified by the surgeon. The patient was taken back to the operating theater, where after adequate anesthesia, the patient's right upper extremity was sterilely prepped and draped in the usual sterile fashion. OR time-out was performed. The patient received appropriate antibiotics and time- out was performed. At this time, a standard deltopectoral incision was made. This was taken down to the cephalic vein. The cephalic vein was identified and was retracted laterally and the subdeltoid space had retractors placed. The clavipectoral fascia was then incised. The conjoined tendon was retracted medially. The anterior humeral circumflex vessels were then ligated. The biceps tendon was identified and a tenodesis using #2 FiberWire was done just above the pectoralis tendon. A tenotomy was then performed, resection of the groove was done all the way back to the level of the glenoid and resection of the biceps tendon was done. Peel down of the subscapularis tendon was done. Patient was noted to have a significant high-grade full-thickness as well as partial thickness tear of the supraspinatus. At this time, we had planned on doing a reverse total shoulder arthroplasty. The humeral head was dislocated, neck cut was then completed, and it was found to be adequate. Attention was turned to the glenoid. Anterior and posterior glenoid retractors were placed and circumferential removal of any remaining biceps as well as the labrum was done at this time and resection of the part of the capsule. Once there was good visualization, a guide pin was placed in a center-center position with roughly 10 degrees of inferior tilt. The central reamer was then used and then the concentric reamer and then the peripheral reamer for clean up was then done for the Arthrex system. The central screw hole was then tapped and 28 mm concentric baseplate was placed and the compression screw was placed down the central portion with the peg. An inferior and superior locking screw was then placed and was found to have adequate purchase. The 36 + 4 glenosphere was then impacted into place and the central locking screw was placed. Attention was turned to the humerus. Starting with a size 5 broach, I was able to broach up to a size 9 which was found to be rotationally and vertically stable. The central reamer was then used for the proximal humerus and trial components with a +3 liner 135 degrees were placed. Patient had no instability throughout the range of motion and no signs of over tensioning of the conjoined tendon or the deltoid. Trial implants were then removed. The 9 mm stem 135 degrees with +3 liner constructed on the back table and en bloc were impacted into the shoulder. The shoulder was then relocated and C-arm fluoroscopy found all parts to be in adequate position. 1 L dilute Betadine solution was irrigated through the shoulder along with 3 L pulse lavage irrigation with Ancef. Topical tranexamic acid as well as vancomycin powder was placed. #5 Ethibond suture was used for tagging of the deltopectoral interval. 2-0 Vicryl was used subcutaneously and Prineo was used for the skin. The patient tolerated the procedure well and sent to PACU in stable condition. MARLENE /[id number]
== END 2019-05-24 13:32 | disposition home or self-care (01) | DRG 483 ==
LOC: JD.MS 06:34
PROVIDERS: ADMIT Orthopaedic Surgery; ATTEND Orthopaedic Surgery
PROC: 0RRJ00Z Replacement of Right Shoulder Joint with Reverse Ball and Socket Synthetic Substitute, Open Approach (ICD-10-PCS; principal; 2019-05-23)
PROC: 3E02340 Introduction of Influenza Vaccine into Muscle, Percutaneous Approach (ICD-10-PCS; 2019-05-24)
DX: M19.011 Primary osteoarthritis, right shoulder (principal); M75.101 Unspecified rotator cuff tear or rupture of right shoulder, not specified as traumatic; F41.9 Anxiety disorder, unspecified; J44.9 Chronic obstructive pulmonary disease, unspecified; F32.9 Major depressive disorder, single episode, unspecified; E78.5 Hyperlipidemia, unspecified; I44.7 Left bundle-branch block, unspecified; Z23 Encounter for immunization; Z79.82 Long term (current) use of aspirin; Z79.899 Other long term (current) drug therapy; Z88.5 Allergy status to narcotic agent; Z91.040 Latex allergy status; Z91.09 Other allergy status, other than to drugs and biological substances; Z90.49 Acquired absence of other specified parts of digestive tract; Z90.89 Acquired absence of other organs; Z87.891 Personal history of nicotine dependence
CPT/HCPCS: 01638; 36415; 64415; 73020-26-RT; 73020-RT; 76000; 76000-26; 80053; 85027; 85610; 85730; 87641; 90686; 97110-GP; 97116-GP; 97161-GP; 97165-GO; 97535-GO; A9270-GY; C1713; C1776; G0008; J0171; J0690; J1100; J1885; J2001; J2250; J2405; J2704; J2795; J3010; J3370; J3490; J7120

== ENCOUNTER 2024-03-02 10:41 | Day surgery (SDC) | payer MEDICARE, OTHER ==
[~2024-03-02 10:41] MED LIST changes: -Acetaminophen 325 MG Tab PO SCH; -Lactated Ringers 1,000 ML IV SCH; -Lidocaine 1%/Sod Bicarbonate in NS 8.4% 1 ML Syringe IDERM PRN; +Sodium Chloride 0.9% 10 ML Syringe FLUSH SCH; -oxyCODONE ER 10 MG TAB.ER PO SCH
[2024-03-02] MEDS: Lactated Ringers 1,000 ML IV SCH (11:05)
[2024-03-02] MEDS ORDERED: Propofol 200 MG/20 ML SDV ONE ×2 (11:37→13:15)
[2024-03-02] MEDS ORDERED: Midazolam 1 MG/ML 2 ML SDV ONE (11:37)
[2024-03-02] MEDS ORDERED: fentaNYL 100 MCG/2 ML SDV ONE (12:38)
[2024-03-02] MEDS ORDERED: Ondansetron 4 MG/2 ML SDV ONE (12:38)
[2024-03-02 14:43] VITALS: BP 110/78; PULSE 70
== END 2024-03-02 14:20 | disposition home or self-care (01) ==
LOC: JD.SDS 10:41
PROVIDERS: ATTEND Surgery
DX: K57.90 Diverticulosis of intestine, part unspecified, without perforation or abscess without bleeding (principal); K52.9 Noninfective gastroenteritis and colitis, unspecified; D50.9 Iron deficiency anemia, unspecified; E78.5 Hyperlipidemia, unspecified; K21.9 Gastro-esophageal reflux disease without esophagitis; F41.9 Anxiety disorder, unspecified; F32.A Depression, unspecified; Z88.8 Allergy status to other drugs, medicaments and biological substances; Z88.5 Allergy status to narcotic agent; Z91.040 Latex allergy status; Z87.891 Personal history of nicotine dependence; Z79.899 Other long term (current) drug therapy
CPT/HCPCS: 00811; 88305; J2250; J2405; J2704; J3010; J7120